=== PATIENT | male | born 1940 | race Hispanic/Latino ===

== ENCOUNTER 2020-03-11 19:35 | Emergency (ER) | payer MEDICARE ==
[~2020-03-11] VITALS: Ht 167.6 cm; Wt 56.7 kg
[2020-03-11] MEDS ORDERED: FAMOTIDINE 20 MG/2 ML VIAL IV STA (20:06)
[2020-03-11] MEDS ORDERED: DONNATAL/LIDOCAINE/MAALOX 30 ML SUSP PO ONE (20:15)
[2020-03-11] MEDS ORDERED: BELLADONNA ALK/PHENOBARBITAL 5 ML UDC PO ONE (20:30)
[2020-03-11] MEDS ORDERED: LIDOCAINE VISC 2% SOLN 15 ML UDC PO ONE (20:30)
[2020-03-11] MEDS ORDERED: MAGNESIUM/ALUMINUM/SIMETHICONE 30 ML UDC PO ONE (20:30)
[2020-03-11] MEDS ORDERED: PEPCID20 MG PO (20:38)
[2020-03-11] MEDS ORDERED: MAGNESIUM/ALUMINUM/SIMETHICONE 30 ML UDC ONE (20:41)
[2020-03-11] MEDS ORDERED: BELLADONNA ALK/PHENOBARBITAL 5 ML UDC ONE (20:41)
[2020-03-11] MEDS ORDERED: FAMOTIDINE 20 MG/2 ML VIAL IV ONE (20:41)
[2020-03-11] MEDS ORDERED: LIDOCAINE VISC 2% SOLN 15 ML UDC ONE (20:41)
[2020-03-11 20:47] VITALS: BP 167/77
== END 2020-03-11 20:47 | disposition home or self-care (01) ==
LOC: FSED 20:33
DX: R14.0 Abdominal distension (gaseous) (principal); G20 Parkinson's disease; F41.9 Anxiety disorder, unspecified; K21.9 Gastro-esophageal reflux disease without esophagitis; Z95.5 Presence of coronary angioplasty implant and graft
CPT/HCPCS: 71045; 80053; 82553; 83880; 84484; 85025; 93005; 96374; 99284